=== PATIENT | male | born 1985 | race Caucasian/White ===

== ENCOUNTER 2020-07-15 20:12 | Emergency (ER) | payer MEDICAID, SELFPAY ==
[2020-07-15 20:25] VITALS: BP 138/85; PULSE 102; RESP 16; TEMP 36.9; O2SAT 95; BMI 25.5
--- NOTE | 2020-07-15 22:02 | ED.HA ---
HPI - Headache General Chief Complaint: Headache Stated Complaint: multiple complaints Time Seen by Provider: 07/15/20 22:02 Source: patient Mode of arrival: ambulatory Limitations: no limitations History of Present Illness HPI Narrative: This is a 34-year-old male who states that he has been having of a mild headache for the past 2-3 days that is not associated with dizziness, fevers, chills, neck pain, unilateral weakness/ numbness /tingling, visual / hearing /speech abnormalities. He states that he has not taken anything for the headache and is currently on antibiotics and is experiencing some mild nausea associated with this but denies any vomiting. Related Data Allergies Allergy/AdvReac Type Severity Reaction Status Date / Time No Known Allergies Allergy Verified 07/15/20 20:24 [No Known Allergies*] Review of Systems Review of Systems: Pertinent positives and negatives as stated in HPI 10 point review of systems is otherwise negative. PMFSH Past Medical History Source: nursing notes reviewed Medical History Deficient knowledge of leg surgery Social History Social History Advance Directives: No Advance Directives Information Provided: Yes Physical Exam Vital Signs: Vital Signs: Last Vital Signs Temp 98.4 F 07/15/20 20:25 Pulse 102 H 07/15/20 20:25 Resp 16 07/15/20 20:25 BP 138/85 07/15/20 20:25 Pulse Ox 95 07/15/20 20:25 Body Mass Index 25.5 VITAL SIGNS: Reviewed. GENERAL: Well developed, well nourished, in no acute distress. HEAD: Normocephalic/atraumatic, EYES: PERRLA, EOMI intact without pain, no nystagmus/pallor/icterus noted EARS: Ext canals without abnormality, TMs non-bulging and non-erythematous NOSE: Nares patent bilateral OROPHARYNX: no oral lesions noted, posterior pharynx clear and non-erythematous without noted tonsillar enlargement/erythema/exudates NECK: Supple, no adenopathy LUNGS: Normal breath sounds. No adventitious sounds or accessory muscle use. SpO2<95> CARDIOVASCULAR: Regular rate and rhythm without noted murmurs, no JVD or lower extremity edema. ABDOMEN: Soft, non-tender, non-distended with bowel sounds. No rigidity. No guarding. No palpable masses or hernias noted MUSCULOSKELETAL: No tenderness, deformities, or effusions noted on gross inspection. EXTREMITIES: No cyanosis, clubbing or edema. SKIN: Inspection of the skin reveals no rashes, ulcerations, jaundice, pallor, or petechiae. NEUROLOGIC: Alert and oriented x 4. Strength and sensation to light touch were grossly intact x 4. Course Course Course Narrative: This is a 34-year-old male with history and clinical presentation consistent with general headache without any alarm symptoms and neurologically intact. Patient is currently taking antibiotics which probably is attributable to his nausea and has not been taking any [id number]-[id number] medications for his headache. Patient was reassured that this is in no way related with his surgery and that he will receive combination analgesics here in the emergency department and then be discharged with a regimen that he can utilize at home. He was also provided with return precautions and discharged in stable condition. Discharge Plan Discharge Clinical Impression: Headache Qualifiers: Headache type: unspecified Headache chronicity pattern: unspecified pattern Intractability: not intractable Qualified Code(s): R51.9 - Headache, unspecified Patient Disposition: Home, Self-Care Instructions: General Headache (ED) Additional Instructions: 1. Tylenol 1000 mg, orally, every 6 hours as needed for headache. Do not exceed 4000 mg within 24 hours. 2. ibuprofen 400 mg, orally with milk or food, every 6 hours as needed for headache. 3. Increase fluid intake especially with water. The patient and/or family acknowledge understanding of results (as applicable), diagnosis, treatment plan, need for follow up, and symptoms that should prompt a return to the emergency room. Referrals: Name,MD Adiel [Primary Care Provider] - 2 days (For re-evaluation of general headache.)
[2020-07-15] MEDS: Ketorolac Tromethamine 15 MG/ML VIAL IM (23:15)
[2020-07-15] MEDS: Acetaminophen 325 MG TABLET 975 MG PO (23:15)
== END 2020-07-15 23:20 | disposition home or self-care (01) ==
PROVIDERS: Emergency Provider Student in an Organized Health Care Education/Training Program; PCP Internal Medicine Geriatric Medicine
DX: R51.9 Headache, unspecified (principal)
CPT/HCPCS: 96372; 99283; 99284; J1885

== ENCOUNTER → 2021-06-22 13:41 | Outpatient (BNVA) | payer MEDICAID, SELFPAY | PROVIDERS: PCP Internal Medicine Geriatric Medicine; Referring Provider Internal Medicine Geriatric Medicine; Visit Provider Surgery | DX: L72.0 Epidermal cyst (principal) | CPT/HCPCS: 99202 ==

== ENCOUNTER 2021-08-06 13:12 | Outpatient (REF) | payer MEDICAID, SELFPAY ==
[2021-08-06 13:22] VITALS: BP 132/83; PULSE 94; RESP 16; TEMP 37.2; O2SAT 99; BMI 26.7
[2021-08-06 13:43] VITALS: BP 111/79; PULSE 92; RESP 16; O2SAT 97
--- NOTE | 2021-08-06 13:59 | W.PM.OPN ---
Operative Note Operative Note Date of Service: 08/06/21 Narrative: Preop diagnosis: Epidermal inclusion cyst, left neck Postop diagnosis: Epidermal inclusion cyst left neck Procedure: Excision of epidermal inclusion cyst left neck under local anaesthesia Surgeon: Quinn Hassan MD The patient is a 35-year-old male with note of an epidermal inclusion cyst on the left neck. This measured about 2 cm in diameter. He understood the technique of excision under local anesthesia and was aware of the risks, benefits, and alternatives . He was brought to the minor procedure room and placed supine on the table with the head turned to the right to expose the epidermal inclusion cyst on the left neck. The area was prepped and draped. Lidocaine 1% was used for local anesthesia. An elliptical incision was made in the skin overlying this cyst using blade 15. This was carried down through the full-thickness of the skin and subcutaneous fat and we continued to sharply dissect the well-defined capsule from the rest of the subcutaneous layer all the way posteriorly. Again this about 2 cm in diameter. This was sent as a specimen. I closed the incision with full-thickness nylon 3-0 interrupted sutures. Dressings were applied and the procedure was completed. The patient tolerated procedure well. There were no complications noted. Estimated blood loss was about 3 cc. The patient was given wound care instructions and will be seen in the office for removal sutures.
== END 2021-08-06 13:13 | disposition home or self-care (01) ==
LOC: HO.MS 13:12
PROVIDERS: PCP Internal Medicine Geriatric Medicine; Visit Provider Surgery
PROC: (CPT 11422; principal; 2021-08-06 14:00)
DX: L72.0 Epidermal cyst (principal); G89.29 Other chronic pain
CPT/HCPCS: 11422; 88304

== ENCOUNTER 2021-09-09 19:10 | Emergency (ER) | payer OTHER, MEDICAID, SELFPAY ==
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
[2021-09-09 19:39] VITALS: BP 117/81; PULSE 93; RESP 16; TEMP 37.6; O2SAT 98; BMI 26.7
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
[2021-09-09 20:33] LABS: MANUAL DIFF FLAG NO
[2021-09-09 20:34] LABS: Basophils Percent Auto 0.2 % (0-2); Eosinophils Absolute Auto 0.2 X10*3/uL (0.0-0.4); Eosinophils Percent Auto 2.5 % (0-4); Hematocrit 42.5 % (42.0-52.0); Hemoglobin 14.2 g/dl (14.0-18.0); Imm Gran Abs Auto 0.01 X10*3/uL (0.00-0.03); Imm Gran Pct Auto 0.2 % (0.0-0.4); Lymphocytes Absolute Auto 1.1 X10*3/uL (1.2-4.9); Lymphocytes Percent Auto 18.4 % (20-40); Mean Corpuscular HGB Conc 33.4 g/dl (31.0-36.0); Mean Corpuscular Hemoglobin 29.5 pg (27.0-33.0); Mean Corpuscular Volume 88.2 fL (80.0-98.0); Mean Platelet Volume 11.1 fL (9.4-12.4); Monocytes Absolute Auto 0.3 X10*3/uL (0.1-1.2); Monocytes Percent Auto 5.4 % (2-11); Neutrophils Absolute Auto 4.5 x10*3/uL (2.0-8.3); Neutrophils Percent Auto 73.3 % (45-73); Platelet Count 160 X10*3/uL (160-400); Red Blood Count 4.82 X10*6/uL (4.60-5.80); Red Cell Distribution Width 12.7 % (11.0-16.0); White Blood Count 6.1 X10*3/uL (4.8-10.8)
[2021-09-09 20:52] LABS: Alanine Aminotransferase 31 U/L (0-40); Albumin Level 4.3 g/dL (3.5-5.0); Alkaline Phosphatase 79 U/L (39-117); Anion Gap 11 (12-20); Aspartate Amino Transferase 20 U/L (5-37); Bilirubin Total 0.7 mg/dL (0.0-1.0); Blood Urea Nitrogen 17 mg/dL (9-16); Calcium 8.8 mg/dL (8.4-10.2); Carbon Dioxide 24 mmol/L (22-29); Chloride 109 mmol/L (96-108); Creatinine Clr Calc Pharmacy 125.3; Estimated Glomerular Filt Rate > 60; Glucose Random 88 mg/dL (60-115); Potassium 3.5 mmol/L (3.3-5.1); Sodium 140 mmol/L (135-145); Total Protein 7.6 g/dL (6.5-8.0)
[2021-09-09] MEDS: iohexoL 350 MG/ML 100 ML INFUS..BTL IV (21:50)
== END 2021-09-09 22:57 | disposition left against medical advice (07) ==
PROVIDERS: Physician Assistant; Emergency Provider Emergency Medicine; PCP Internal Medicine Geriatric Medicine
DX: S06.0X0A Concussion without loss of consciousness, initial encounter (principal); S13.4XXA Sprain of ligaments of cervical spine, initial encounter; V43.52XA Car driver injured in collision with other type car in traffic accident, initial encounter; Y93.89 Activity, other specified; Y92.414 Local residential or business street as the place of occurrence of the external cause; Y99.9 Unspecified external cause status
CPT/HCPCS: 36415; 70450; 71260; 72125; 73562; 74177; 80053; 85025; 99284; Q9967

== ENCOUNTER 2022-01-30 03:41 | Emergency (ER) | payer OTHER, MEDICAID, SELFPAY ==
[2022-01-30 03:43] VITALS: BP 133/90; PULSE 92; RESP 16; TEMP 36.8; O2SAT 97; BMI 30.4
--- NOTE | 2022-01-30 04:48 | PC.NURSE ---
MD Hill noted to be several patients behind. Pt unable to wait any longer to see .
== END 2022-01-30 04:50 | disposition left against medical advice (07) ==
PROVIDERS: Emergency Provider Emergency Medicine; PCP Internal Medicine Geriatric Medicine
DX: H57.11 Ocular pain, right eye (principal)
CPT/HCPCS: 99281

== ENCOUNTER 2022-01-30 16:08 | Emergency (ER) | payer MEDICAID, SELFPAY ==
[2022-01-30 16:48] VITALS: BP 130/87; PULSE 73; RESP 16; TEMP 36.3; O2SAT 97; BMI 30.5
== END 2022-01-30 18:36 | disposition left against medical advice (07) ==
PROVIDERS: Emergency Provider Emergency Medicine; PCP Internal Medicine Geriatric Medicine
DX: M54.9 Dorsalgia, unspecified (principal)
CPT/HCPCS: 99281

== ENCOUNTER 2022-10-06 21:17 | Emergency (ER) | payer MEDICAID, SELFPAY ==
--- NOTE | ~2022-10-06 | US_ITS ---
EXAMINATION: US SCROTUM CLINICAL INFORMATION: Scrotal/groin pain. COMPARISON: CT abdomen and pelvis 09/09/2021 TECHNIQUE: A sonogram of the scrotum was performed assessing rouse-scale appearance and color Doppler flow. Spectral Doppler analysis of the arterial and venous flow were performed in the testes bilaterally. FINDINGS: RIGHT: Right testicle measures 5.1 x 2.5 x 3.7 cm, volume 24.1 mL. No focal testicular parenchymal lesions are visualized. Spectral Doppler analysis of the arterial and venous flow is normal in the right testis. Right epididymal head is normal in size. No right hydrocele or varicocele is seen. Right epididymal Doppler flow is normal. LEFT: Left testicle measures 5.2 x 2.2 x 3.2 cm, volume 18.9 mL. No focal testicular parenchymal lesions are visualized. Spectral Doppler analysis of the arterial and venous flow is normal in the left testis. Left epididymal head is normal in size. No left hydrocele or varicocele is seen. Left epididymal Doppler flow is normal. Incidental finding of prominent/enlarged right inguinal lymph nodes, largest 4 x 1.5 x 2.7 cm in size and 2.2 x 1.3 x 1.8 cm. US/US scrotum IMPRESSION: 1. Normal testes and epididymides. No evidence of torsion or intratesticular lesion. 2. Incidental finding of prominent/enlarged right inguinal lymph nodes, nonspecific in etiology.
--- NOTE | ~2022-10-06 | US_ITS ---
EXAMINATION: US SCROTUM CLINICAL INFORMATION: Scrotal/groin pain. COMPARISON: CT abdomen and pelvis 09/09/2021 TECHNIQUE: A sonogram of the scrotum was performed assessing rouse-scale appearance and color Doppler flow. Spectral Doppler analysis of the arterial and venous flow were performed in the testes bilaterally. FINDINGS: RIGHT: Right testicle measures 5.1 x 2.5 x 3.7 cm, volume 24.1 mL. No focal testicular parenchymal lesions are visualized. Spectral Doppler analysis of the arterial and venous flow is normal in the right testis. Right epididymal head is normal in size. No right hydrocele or varicocele is seen. Right epididymal Doppler flow is normal. LEFT: Left testicle measures 5.2 x 2.2 x 3.2 cm, volume 18.9 mL. No focal testicular parenchymal lesions are visualized. Spectral Doppler analysis of the arterial and venous flow is normal in the left testis. Left epididymal head is normal in size. No left hydrocele or varicocele is seen. Left epididymal Doppler flow is normal. Incidental finding of prominent/enlarged right inguinal lymph nodes, largest 4 x 1.5 x 2.7 cm in size and 2.2 x 1.3 x 1.8 cm. US/US scrotum doppler IMPRESSION: 1. Normal testes and epididymides. No evidence of torsion or intratesticular lesion. 2. Incidental finding of prominent/enlarged right inguinal lymph nodes, nonspecific in etiology.
[2022-10-06 22:02] VITALS: BP 134/88; PULSE 114; RESP 18; TEMP 37.9; O2SAT 100; BMI 30.4
[2022-10-06] MEDS: Acetaminophen 325 MG TABLET 650 MG PO (22:11)
[2022-10-06 22:26] LABS: Basophils Percent Auto 0.1 % (0-2); Eosinophils Absolute Auto 0.1 X10*3/uL (0.0-0.4); Eosinophils Percent Auto 0.6 % (0-4); Hemoglobin 14.8 g/dl (14.0-18.0); Imm Gran Abs Auto 0.06 X10*3/uL (0.00-0.03); Imm Gran Pct Auto 0.4 % (0.0-0.4); Lymphocytes Absolute Auto 0.8 X10*3/uL (1.2-4.9); Lymphocytes Percent Auto 5.4 % (20-40); MANUAL DIFF FLAG SCAN; Mean Corpuscular HGB Conc 33.6 g/dl (31.0-36.0); Mean Corpuscular Hemoglobin 29.1 pg (27.0-33.0); Mean Corpuscular Volume 86.4 fL (80.0-98.0); Mean Platelet Volume 10.7 fL (9.4-12.4); Monocytes Absolute Auto 0.5 X10*3/uL (0.1-1.2); Monocytes Percent Auto 3.2 % (2-11); Neutrophils Absolute Auto 13.7 x10*3/uL (2.0-8.3); Neutrophils Percent Auto 90.3 % (45-73); Platelet Count 166 X10*3/uL (160-400); Red Blood Count 5.09 X10*6/uL (4.60-5.80); Red Cell Distribution Width 12.3 % (11.0-16.0); SCAN SMEAR FLAG 1; White Blood Count 15.2 X10*3/uL (4.8-10.8)
[2022-10-06 22:44] LABS: Anion Gap 12 (12-20); Blood Urea Nitrogen 12 mg/dL (9-16); Calcium 8.9 mg/dL (8.4-10.2); Carbon Dioxide 26 mmol/L (22-29); Chloride 106 mmol/L (96-108); Creatinine Clr Calc Pharmacy 135.3; Estimated Glomerular Filt Rate > 60; Glucose Random 76 mg/dL (60-115); Sodium 140 mmol/L (135-145)
[2022-10-06 22:46] LABS: SLIDE REVIEW VERIFIED
[2022-10-07] VITALS: BP 134/79; PULSE 109; RESP 16; TEMP 38.8; O2SAT 98
--- NOTE | 2022-10-07 00:05 | ED_ITS ---
HPI - General Adult General Chief complaint: General Medical Stated complaint: Groin pain Time Seen by Provider: 10/07/22 00:02 Source: patient Mode of arrival: ambulatory Limitations: no limitations History of Present Illness HPI narrative: Patient complaining of pain in the right inguinal area for last 3 months with history of fever off and on no penile discharge patient had ultrasound done before my evaluation which showed inflamed lymph nodes testicle were normal. In the ER patient temperature spiked to 101.8. Patient says whenever she he gets pain in that area,he gets fever otherwise there is no fever patient has not seen any primary care doctor for this Related Data Home Medications Medication Instructions Recorded Confirmed tramadol 50 mg tablet 50 mg PO TID PRN 06/22/21 06/22/21 Previous Rx's Medication Instructions Recorded cephalexin 500 mg capsule 500 mg PO QID 10 days #40 caps 10/07/22 doxycycline hyclate 100 mg tablet 100 mg PO BID #20 tabs 10/07/22 ibuprofen 600 mg tablet 600 mg PO Q6H PRN fever or pain 10/07/22 #30 tabs Allergies Allergy/AdvReac Type Severity Reaction Status Date / Time No Known Allergies Allergy Verified 10/06/22 22:02 [No Known Allergies*] Review of Systems Review of Systems: Yes all other systems are reviewed and are negative [facility] Past Medical History Medical History Chronic pain Deficient knowledge of leg surgery Epidermal inclusion cyst Surgical History Surgical history unknown Social History Social History Advance Directives: No Advance Directives Information Provided: No Physical Exam ED Vital Signs: Vital Signs - 24 hr 10/06/22 22:02 10/07/22 00:00 Temperature 100.3 F 101.8 F H Pulse Rate 114 H 109 H Respiratory Rate 18 16 Blood Pressure 134/88 134/79 Pulse Oximetry 100 98 Oxygen Delivery Method Room Air Room Air BMI result Body Mass Index 30.4 Appearance: Alert. Oriented X3. No acute distress. Eyes: PERRLA, No Nystagmus ENT: Pharynx normal. Oral Mucosa moist Neck: Normal inspection. Neck supple. CVS: Normal heart rate and rhythm. Pulses normal. Respiratory: No respiratory distress. Equal air entry bilateral, no wheezing/rales/rhonchi Abdomen: Soft and nontender. Bowel sounds are present, no mass palpable, no CVA tenderness Skin: Skin warm and dry. Normal skin color. Normal skin turgor. Extremities: No lower extremity edema. No calf tenderness Neuro: Oriented X 3. No motor deficit. No sensory deficit.No cerebellar signs , cranial nerves II-XII intact Skin Full body images: 1. Mild tender lymphadenopathy 1 x 2 cm is skin normal no signs of infection surrounding area Medications Administered Discontinued Medications Generic Name Dose Route Start Last Admin Trade Name Freq PRN Reason Stop Dose Admin Acetaminophen 650 mg 10/06/22 22:07 10/06/22 22:11 Acetaminophen 325 Mg Tablet PO 10/06/22 22:08 650 mg ONCE ONE Administration Cephalexin HCl 500 mg 10/07/22 00:13 10/07/22 01:00 Cephalexin 500 Mg Capsule PO 10/07/22 00:14 500 mg ONCE ONE Administration Doxycycline Monohydrate 100 mg 10/07/22 00:13 10/07/22 01:00 Doxycycline Monohydrate 100 Mg Capsule PO 10/07/22 00:14 100 mg ONCE ONE Administration Ibuprofen 600 mg 10/07/22 00:12 10/07/22 00:59 Ibuprofen 600 Mg Tablet PO 10/07/22 00:13 600 mg ONCE ONE Administration Medical Decision Making Medical Decision Making [facility] Narrative: Patient nonspecific lymphadenopathy which is tender slight leukocytosis and f ever etiology not clear will start on doxycycline and cephalexin advised to follow with PCP Lab Data MDM Lab Attestation statement: I reviewed the patient's lab results. 10/06/22 22:19 10/06/22 22:19 Labs: Lab Results 10/06/22 10/06/22 10/07/22 Range/Units 22:19 22:19 00:53 WBC 15.2 H (4.8-10.8) X10*3/uL RBC 5.09 (4.60-5.80) X10*6/uL Hgb 14.8 (14.0-18.0) g/dl Hct 44.0 (42.0-52.0) % MCV 86.4 (80.0-98.0) fL MCH 29.1 (27.0-33.0) pg MCHC 33.6 (31.0-36.0) g/dl RDW 12.3 (11.0-16.0) % Plt Count 166 (160-400) X10*3/uL MPV 10.7 (9.4-12.4) fL Immature Gran % (Auto) 0.4 (0.0-0.4) % Neut % (Auto) 90.3 H (45-73) % Lymph % (Auto) 5.4 L (20-40) % [place] % (Auto) 3.2 (2-11) % Eos % (Auto) 0.6 (0-4) % Baso % (Auto) 0.1 (0-2) % Lymph # (Auto) 0.8 L (1.2-4.9) X10*3/uL [place] # (Auto) 0.5 (0.1-1.2) X10*3/uL Eos # (Auto) 0.1 (0.0-0.4) X10*3/uL Baso # (Auto) 0.0 (0.0-0.2) X10*3/uL Abs Immat Gran (auto) 0.06 H (0.00-0.03) X10*3/uL Absolute Neuts (auto) 13.7 H (2.0-8.3) x10*3/uL Absolute Nucleated RBC 0.000 (0.0-0.012) X10*3/uL Nucleated RBC % (auto) 0.0 (0.0-0.2) /100WBC Smear Tech's Comments VERIFIED Sodium 140 (135-145) mmol/L Potassium 4.0 (3.3-5.1) mmol/L Chloride 106 (96-108) mmol/L Carbon Dioxide 26 (22-29) mmol/L Anion Gap 12 (12-20) BUN 12 (9-16) mg/dL Creatinine 1.03 (0.5-1.4) mg/dL Estim Creat Clear Calc 135.3 Estimated GFR > 60 Random Glucose 76 (60-115) mg/dL Lactic Acid 1.4 (0.5-2.0) mmol/L Calcium 8.9 (8.4-10.2) mg/dL COVID-19 (DEBRA) (Negative) COVID-19 Clin Com 02/23/23 Range/Units 00:53 WBC (4.8-10.8) X10*3/uL RBC (4.60-5.80) X10*6/uL Hgb (14.0-18.0) g/dl Hct (42.0-52.0) % MCV (80.0-98.0) fL MCH (27.0-33.0) pg MCHC (31.0-36.0) g/dl RDW (11.0-16.0) % Plt Count (160-400) X10*3/uL MPV (9.4-12.4) fL Immature Gran % (Auto) (0.0-0.4) % Neut % (Auto) (45-73) % Lymph % (Auto) (20-40) % [place] % (Auto) (2-11) % Eos % (Auto) (0-4) % Baso % (Auto) (0-2) % Lymph # (Auto) (1.2-4.9) X10*3/uL [place] # (Auto) (0.1-1.2) X10*3/uL Eos # (Auto) (0.0-0.4) X10*3/uL Baso # (Auto) (0.0-0.2) X10*3/uL Abs Immat Gran (auto) (0.00-0.03) X10*3/uL Absolute Neuts (auto) (2.0-8.3) x10*3/uL Absolute Nucleated RBC (0.0-0.012) X10*3/uL Nucleated RBC % (auto) (0.0-0.2) /100WBC Smear Tech's Comments Sodium (135-145) mmol/L Potassium (3.3-5.1) mmol/L Chloride (96-108) mmol/L Carbon Dioxide (22-29) mmol/L Anion Gap (12-20) BUN (9-16) mg/dL Creatinine (0.5-1.4) mg/dL Estim Creat Clear Calc Estimated GFR Random Glucose (60-115) mg/dL Lactic Acid (0.5-2.0) mmol/L Calcium (8.4-10.2) mg/dL COVID-19 (DEBRA) Negative (Negative) COVID-19 Clin Com See Note Discharge Plan Discharge Clinical Impression: Lymphadenopathy Patient Disposition: Home, Self-Care Instructions: Lymphadenopathy (ED) Additional Instructions: Cause of enlarged lymph node is not clear Follow-up with PCP for further evaluation management Antibiotics as prescribed Ibuprofen for pain Prescriptions: New cephalexin 500 mg capsule 500 mg PO QID 10 Days Qty: 40 0RF ibuprofen 600 mg tablet 600 mg PO Q6H PRN (Reason: fever or pain) Qty: 30 0RF doxycycline hyclate 100 mg tablet 100 mg PO BID Qty: 20 0RF No Action tramadol 50 mg tablet 50 mg PO TID PRN Discharge Date/Time: 10/07/22 01:30
--- NOTE | 2022-10-07 00:06 | MHC.EDTECH ---
THIS PCT ASSUMED CARE OF PT AT 2300 ,0000 ROUNDING DONE ,VITALS SIGN TAKEN ,PT RESTING QUIETLY IN BED .
[2022-10-07] MEDS: Ibuprofen 600 MG TABLET PO (00:59)
[2022-10-07] MEDS: cephALEXin 500 MG CAPSULE PO (01:00)
[2022-10-07] MEDS: Doxycycline Monohydrate 100 MG CAPSULE PO (01:00)
[2022-10-07 05:48] LABS: Lactic Acid 1.4 mmol/L (0.5-2.0)
[2022-10-07 06:10] LABS: COVID-19 Test Negative (Negative); IDNOW Serial# 6674DD1D
[2022-10-07 10:02] LABS: CT PCR NOT DETECTED (Not Detect.); NG PCR NOT DETECTED (Not Detect.)
== END 2022-10-07 01:30 | disposition home or self-care (01) ==
PROVIDERS: Emergency Provider Internal Medicine; PCP Internal Medicine Geriatric Medicine
DX: R59.1 Generalized enlarged lymph nodes (principal); R10.30 Lower abdominal pain, unspecified; R50.9 Fever, unspecified; Z20.822 Contact with and (suspected) exposure to COVID-19; Z20.828 Contact with and (suspected) exposure to other viral communicable diseases; Z79.899 Other long term (current) drug therapy
CPT/HCPCS: 0353U; 36415; 76870; 80048; 83605; 85025; 87040; 87635; 93975; 99283; 99284